=== PATIENT | female | born 1945 | race Caucasian/White ===

== ENCOUNTER 2017-02-27 15:13 | Emergency (ER) | payer MEDICARE ==
[2017-02-27 16:22] LABS: INR-International Normal Ratio 1.4; Prothrombin Time 17.6 SEC (12.0-14.7)
[2017-02-27 16:31] LABS: #Basophils 0.1 thou/uL (0.0-0.2); #Eosinphils 0.3 thou/uL (0.0-0.7); #Lymphocytes 1.1 thou/uL (1.20-3.40); #Monocytes 0.4 thou/uL (0.11-0.59); #Neutrophils 1.7 thou/uL (1.40-6.50); %Basophils 2.7 % (0.0-1.0); %Eosinophils 7.9 % (0.0-10.0); %Lymphocytes 32.1 % (21.0-51.0); %Monocytes 10.5 % (0.0-10.0); %Neutrophils 46.8 % (42.0-75.0); ALT (SGPT) 22 U/L (8-55); AST (SGOT) 41 U/L (5-34); Albumin 3.1 g/dL (3.4-4.8); Alkaline Phosphatase 96 U/L (40-150); Anion Gap 13 mmol/L (10-20); BUN (Urea Nitrogen) 8 mg/dL (9.8-20.1); Bilirubin, Total 2.2 mg/dL (0.2-1.2); Calc. Creatinine Clearance 0 mL/min (70-130); Calcium 9.1 mg/dL (7.8-10.44); Carbon Dioxide 23 mmol/L (23-31); Chloride 111 mmol/L (98-107); Estimated GFR-MDRD 77; Globulin 3.7 g/dL (2.4-3.5); Glucose 158 mg/dL (83-110); Hemoglobin 12.9 g/dL (12.0-16.0); Lipase 62 U/L (8-78); MDiff Complete? YES; Macrocytosis SLIGHT = 6-15 cells (100X) (0-5/hpf); Magnesium 1.8 mg/dL (1.6-2.6); Mean Corpuscular HGB CONC 34.3 g/dL (32.0-36.0); Mean Corpuscular Hemoglobin 36.3 pg (27.0-31.0); Mean Platelet Volume 7.3 fL (7.4-10.4); Platelet Count 68 thou/uL (130-400); Potassium 3.6 mmol/L (3.5-5.1); Protein, Total 6.8 g/dL (6.0-8.3); RBC Distribution Width 13.4 % (11.5-14.5); Red Blood Cell (RBC) Count 3.55 mill/uL (4.20-5.40); Sodium 143 mmol/L (136-145); White Blood Cell (WBC) Count 3.5 thou/uL (4.8-10.8)
[2017-02-27 16:33] LABS: CKMB 0.9 ng/mL (0-6.6); Troponin I Less than 0.010 ng/mL (< 0.028)
[2017-02-27 16:36] LABS: Bilirubin Negative (Negative); Blood, Urine Trace (Negative); Clarity Clear (Clear); Glucose, Urine (Dipstick) Negative (Negative); Leukocyte Negative (Negative); Nitrite Negative (Negative); Protein, Urine (Dipstick) Trace mg/dL (Neg-Trace); pH, Urine 5.5 (5.0-9.0)
[2017-02-27 16:41] LABS: Specific Gravity, Urine 1.028 (1.002-1.036)
[2017-02-27 16:44] LABS: Bacteria/HPF Rare-Few HPF (None Seen); Crystals/HPF None Seen HPF (Negative); Hyaline Casts/LPF NONE SEEN LPF (0-3 Hyaline); Other Casts/LPF None Seen LPF (0-3 Hyaline); Oval Fat Bodies/HPF None Seen HPF (None Seen); Renal Epithelial None Seen HPF (0-3); Sperm/HPF None Seen HPF (None Seen); Transitional Epithelial NONE SEEN HPF (0-3); Trichomonas/HPF None Seen HPF (None Seen); WBC/HPF 0-3 HPF (0-3); Yeast-All Forms None Seen HPF (None Seen)
== END 2017-02-27 17:12 | disposition home or self-care (01) ==
LOC: BURERS 15:13
DX: E72.20 Disorder of urea cycle metabolism, unspecified (principal); K74.60 Unspecified cirrhosis of liver; D64.9 Anemia, unspecified; K21.9 Gastro-esophageal reflux disease without esophagitis; J43.9 Emphysema, unspecified; Z79.891 Long term (current) use of opiate analgesic; Z79.899 Other long term (current) drug therapy
CPT/HCPCS: 80053; 81003; 81015; 82140; 82553; 83690; 83735; 84443; 84484; 85025; 85610; 85730; 96360

== ENCOUNTER 2018-10-28 09:58 | Outpatient (CLI) | payer MEDICARE ==
--- NOTE | 2018-10-28 18:42 | ULT ---
BILATERAL RENAL ULTRASOUND 10/28/18 Ultrasonography of the urinary tract was performed in this patient with chronic kidney disease. The right kidney is slightly small measuring 8.8 x 4.0 x 3.7 cm. Its cortex is slightly thinned and m inimally echogenic. There is no obstruction or mass. The left kidney is more normal in appearance liza suring 10.3 x 4.2 x 4.2 cm. The urinary bladder wall is 3 mm thick which is probably normal given the degree of distention. IMPRESSION: Right kidney slightly smaller and echogenic. Otherwise, no evidence of obstruction or other acute fin dings. POS: HOME
== END 2018-10-28 09:59 | disposition home or self-care (01) ==
LOC: BURULT 09:58
PROVIDERS: ATTEND Internal Medicine Nephrology
DX: I12.9 Hypertensive chronic kidney disease with stage 1 through stage 4 chronic kidney disease, or unspecified chronic kidney disease (principal); N18.9 Chronic kidney disease, unspecified; N27.0 Small kidney, unilateral
CPT/HCPCS: 76770

== ENCOUNTER 2019-05-23 16:39 | Emergency (ER) | payer MEDICARE ==
[2019-05-23] MEDS ORDERED: traMADol HCl 50 MG TAB ONE (17:05)
--- NOTE | 2019-05-23 17:34 | RAD ---
RADIOGRAPH CHEST AND LEFT RIBS 4 VIEWS: HISTORY: 73-year-old female with acute traumatic left rib pain due to fall. FINDINGS: Several nonacute left rib fractures, including posterior aspects of left seventh and eighth ribs. No grossly displaced acute rib fracture identified. Visualized lung martins are grossly clear. Left-sided PICC. No cardiomegaly. No pneumothorax. IMPRESSION: 1. Old left rib fracture. 2. No definite acute left rib fracture identified.
== END 2019-05-23 17:44 | disposition home or self-care (01) ==
LOC: BURERS 16:39
DX: S20.212A Contusion of left front wall of thorax, initial encounter (principal); D64.9 Anemia, unspecified; J43.9 Emphysema, unspecified; K21.9 Gastro-esophageal reflux disease without esophagitis; Z79.899 Other long term (current) drug therapy; Z79.891 Long term (current) use of opiate analgesic; Z79.82 Long term (current) use of aspirin; K74.60 Unspecified cirrhosis of liver; W06.XXXA Fall from bed, initial encounter

== ENCOUNTER 2020-04-27 10:28 | Outpatient (CLI) | payer MEDICARE ==
[2020-04-27 11:11] LABS: Prothrombin Time 13.2 sec (12.0-14.7)
[2020-04-27 11:20] LABS: #Basophils 0.1 thou/uL (0.0-0.2); #Eosinphils 0.3 thou/uL (0.0-0.7); #Lymphocytes 0.9 thou/uL (1.20-3.40); #Monocytes 0.4 thou/uL (0.11-0.59); #Neutrophils 3.7 thou/uL (1.40-6.50); %Basophils 1.5 % (0.0-1.0); %Eosinophils 4.8 % (0.0-10.0); %Monocytes 8.2 % (0.0-10.0); %Neutrophils 68.5 % (42.0-75.0); Hemoglobin 12.4 g/dL (12.0-16.0); Mean Corpuscular HGB CONC 32.5 g/dL (32.0-36.0); Mean Corpuscular Hemoglobin 31.1 pg (27.0-31.0); Mean Corpuscular Volume 95.8 fL (78.0-98.0); Mean Platelet Volume 8.3 fL (7.4-10.4); Platelet Count 224 thou/uL (130-400); RBC Distribution Width 11.7 % (11.5-14.5); Red Blood Cell (RBC) Count 3.99 mill/uL (4.20-5.40); White Blood Cell (WBC) Count 5.4 thou/uL (4.8-10.8)
[2020-04-27 11:25] LABS: ALT (SGPT) 10 U/L (8-55); AST (SGOT) 10 U/L (5-34); Albumin 4.4 g/dL (3.4-4.8); Alkaline Phosphatase 92 U/L (40-110); Anion Gap 15 mmol/L (10-20); BUN (Urea Nitrogen) 22 mg/dL (9.8-20.1); Bilirubin, Total 0.4 mg/dL (0.2-1.2); Calc. Creatinine Clearance 0 mL/min (70-130); Carbon Dioxide 26 mmol/L (23-31); Chloride 106 mmol/L (98-107); Globulin 2.4 g/dL (2.4-3.5); Glucose 99 mg/dL (83-110); Magnesium 2.1 mg/dL (1.6-2.6); Potassium 3.7 mmol/L (3.5-5.1); Protein, Total 6.8 g/dL (6.0-8.3); Sodium 143 mmol/L (136-145)
[2020-04-28 14:51] LABS: Reference Lab Name LABCORP
[2020-04-28 14:52] LABS: Ref Lab Test Ordered AFP L3; Ref Lab Test Ordered DGC PROTHROMBIN; Reference Lab Name LABCORP
== END 2020-04-27 10:29 | disposition home or self-care (01) ==
LOC: BURLAB 10:28
PROVIDERS: ATTEND Transplant Surgery
DX: Z48.23 Encounter for aftercare following liver transplant (principal); C22.1 Intrahepatic bile duct carcinoma; R97.8 Other abnormal tumor markers
CPT/HCPCS: 36415; 80053; 80158; 82105; 82378; 83735; 85025; 85610; 86301

== ENCOUNTER 2020-06-22 09:59 | Outpatient (CLI) | payer MEDICARE ==
[2020-06-22 10:32] LABS: #Basophils 0.1 thou/uL (0.0-0.2); #Eosinphils 0.3 thou/uL (0.0-0.7); #Lymphocytes 1.1 thou/uL (1.20-3.40); #Monocytes 0.5 thou/uL (0.11-0.59); #Neutrophils 3.8 thou/uL (1.40-6.50); %Basophils 1.3 % (0.0-1.0); %Eosinophils 4.6 % (0.0-10.0); %Lymphocytes 19.3 % (21.0-51.0); %Monocytes 8.3 % (0.0-10.0); %Neutrophils 66.4 % (42.0-75.0); Hemoglobin 12.5 g/dL (12.0-16.0); Mean Corpuscular HGB CONC 30.6 g/dL (32.0-36.0); Mean Corpuscular Hemoglobin 29.4 pg (27.0-31.0); Mean Corpuscular Volume 96.2 fL (78.0-98.0); Mean Platelet Volume 8.3 fL (7.4-10.4); Platelet Count 212 thou/uL (130-400); RBC Distribution Width 12.3 % (11.5-14.5); Red Blood Cell (RBC) Count 4.25 mill/uL (4.20-5.40); White Blood Cell (WBC) Count 5.7 thou/uL (4.8-10.8)
[2020-06-22 10:35] LABS: INR-International Normal Ratio 0.9; Prothrombin Time 12.3 sec (12.0-14.7)
[2020-06-22 11:03] LABS: ALT (SGPT) 9 U/L (8-55); AST (SGOT) 10 U/L (5-34); Albumin 4.2 g/dL (3.4-4.8); Alkaline Phosphatase 93 U/L (40-110); Anion Gap 13 mmol/L (10-20); BUN (Urea Nitrogen) 26 mg/dL (9.8-20.1); Bilirubin, Total 0.5 mg/dL (0.2-1.2); Calc. Creatinine Clearance 0 mL/min (70-130); Calcium 9.1 mg/dL (7.8-10.44); Carbon Dioxide 27 mmol/L (23-31); Chloride 106 mmol/L (98-107); Glucose 104 mg/dL (83-110); Magnesium 2.1 mg/dL (1.6-2.6); Protein, Total 6.2 g/dL (5.8-8.1); Sodium 142 mmol/L (136-145)
[2020-06-23 14:05] LABS: Ref Lab Test Ordered AFP L3; Reference Lab Name LABCORP
[2020-06-23 14:06] LABS: Reference Lab Name LABCORP
== END 2020-06-22 10:00 | disposition home or self-care (01) ==
LOC: BURLAB 09:59
PROVIDERS: ATTEND Transplant Surgery
DX: Z48.23 Encounter for aftercare following liver transplant (principal); C22.1 Intrahepatic bile duct carcinoma; R97.8 Other abnormal tumor markers
CPT/HCPCS: 36415; 80053; 80158; 82105; 82378; 83735; 85025; 85610; 86301

== ENCOUNTER 2020-09-06 09:44 | Outpatient (CLI) | payer MEDICARE ==
[2020-09-06 10:40] LABS: INR-International Normal Ratio 0.9; Prothrombin Time 12.4 sec (12.0-14.7)
[2020-09-06 10:53] LABS: #Basophils 0.1 thou/uL (0.0-0.2); #Eosinphils 0.2 thou/uL (0.0-0.7); #Lymphocytes 1.1 thou/uL (1.20-3.40); #Monocytes 0.6 thou/uL (0.11-0.59); %Eosinophils 3.5 % (0.0-10.0); %Lymphocytes 15.5 % (21.0-51.0); %Monocytes 7.8 % (0.0-10.0); %Neutrophils 71.2 % (42.0-75.0); Hemoglobin 13.5 g/dL (12.0-16.0); Mean Corpuscular HGB CONC 30.8 g/dL (32.0-36.0); Mean Corpuscular Hemoglobin 29.9 pg (27.0-31.0); Mean Corpuscular Volume 96.9 fL (78.0-98.0); Mean Platelet Volume 8.3 fL (7.4-10.4); Platelet Count 236 thou/uL (130-400); RBC Distribution Width 12.6 % (11.5-14.5)
[2020-09-06 11:01] LABS: ALT (SGPT) 8 U/L (8-55); AST (SGOT) 9 U/L (5-34); Albumin 4.5 g/dL (3.4-4.8); Alkaline Phosphatase 98 U/L (40-110); Anion Gap 14 mmol/L (10-20); BUN (Urea Nitrogen) 24 mg/dL (9.8-20.1); Bilirubin, Total 0.4 mg/dL (0.2-1.2); Calc. Creatinine Clearance 0 mL/min (70-130); Calcium 9.1 mg/dL (7.8-10.44); Carbon Dioxide 25 mmol/L (23-31); Chloride 108 mmol/L (98-107); Globulin 2.6 g/dL (2.4-3.5); Glucose 105 mg/dL (83-110); Magnesium 1.9 mg/dL (1.6-2.6); Potassium 3.8 mmol/L (3.5-5.1); Protein, Total 7.1 g/dL (5.8-8.1); Sodium 143 mmol/L (136-145)
[2020-09-07 07:28] LABS: Ref Lab Test Ordered AFP L3%; Reference Lab Name LABCORP
[2020-09-07 07:29] LABS: Ref Lab Test Ordered DCP; Reference Lab Name LABCORP
== END 2020-09-06 09:45 | disposition home or self-care (01) ==
LOC: BURLAB 09:44
PROVIDERS: ATTEND Transplant Surgery
DX: Z48.23 Encounter for aftercare following liver transplant (principal); C22.1 Intrahepatic bile duct carcinoma; R97.8 Other abnormal tumor markers
CPT/HCPCS: 36415; 80053; 80158; 82105; 82378; 83735; 85025; 85610; 86301

== ENCOUNTER 2020-12-13 09:44 | Outpatient (CLI) | payer MEDICARE ==
[2020-12-13 10:20] LABS: ALT (SGPT) 10 U/L (8-55); AST (SGOT) 11 U/L (5-34); Albumin 4.3 g/dL (3.4-4.8); Alkaline Phosphatase 98 U/L (40-110); Anion Gap 15 mmol/L (10-20); BUN (Urea Nitrogen) 24 mg/dL (9.8-20.1); Bilirubin, Total 0.5 mg/dL (0.2-1.2); Calc. Creatinine Clearance 0 mL/min (70-130); Calcium 9.9 mg/dL (7.8-10.44); Carbon Dioxide 23 mmol/L (23-31); Chloride 106 mmol/L (98-107); Globulin 3.2 g/dL (2.4-3.5); Glucose 107 mg/dL (83-110); Potassium 4.3 mmol/L (3.5-5.1); Protein, Total 7.5 g/dL (5.8-8.1); Sodium 140 mmol/L (136-145)
== END 2020-12-13 09:45 | disposition home or self-care (01) ==
LOC: BURLAB 09:44
PROVIDERS: ATTEND Transplant Surgery
DX: Z48.23 Encounter for aftercare following liver transplant (principal)
CPT/HCPCS: 36415; 80053; 80158

== ENCOUNTER 2021-06-21 10:27 | Outpatient (CLI) | payer MEDICARE ==
[2021-06-21 11:26] LABS: Prothrombin Time 12.9 sec (12.0-14.7)
[2021-06-21 11:27] LABS: PTT 32.5 sec (22.9-36.1)
[2021-06-21 12:16] LABS: ALT (SGPT) 8 U/L (8-55); AST (SGOT) 11 U/L (5-34); Albumin 4.9 g/dL (3.4-4.8); Alkaline Phosphatase 72 U/L (40-110); Anion Gap 16 mmol/L (10-20); BUN (Urea Nitrogen) 24 mg/dL (9.8-20.1); Calc. Creatinine Clearance 0 mL/min (70-130); Calcium 9.7 mg/dL (7.8-10.44); Carbon Dioxide 25 mmol/L (23-31); Cardiac Risk 7.1 (Less than 4.5); Chloride 100 mmol/L (98-107); Cholesterol 307 mg/dl (< 200 Desired); Globulin 2.7 g/dL (2.4-3.5); Glucose 107 mg/dL (83-110); HDL Cholesterol 43 mg/dL (>60 Neg Risk); LDL Cholesterol, Calculated 218 mg/dL; Magnesium 1.9 mg/dL (1.6-2.6); Protein, Total 7.6 g/dL (5.8-8.1); Sodium 137 mmol/L (136-145); Triglycerides 228 mg/dL (Less than 150)
[2021-06-21 12:19] LABS: Thyroid Stimulating Hormone 1.3184 uIU/mL (0.35-4.94)
[2021-06-21 12:42] LABS: #Basophils 0.1 thou/uL (0.0-0.2); #Eosinphils 0.2 thou/uL (0.0-0.7); #Monocytes 0.4 thou/uL (0.11-0.59); #Neutrophils 4.3 thou/uL (1.40-6.50); %Lymphocytes 16.2 % (21.0-51.0); %Monocytes 6.8 % (0.0-10.0); Hemoglobin 13.4 g/dL (12.0-16.0); Mean Corpuscular HGB CONC 31.5 g/dL (32.0-36.0); Mean Corpuscular Hemoglobin 30.2 pg (27.0-31.0); Mean Corpuscular Volume 95.8 fL (78.0-98.0); Mean Platelet Volume 8.2 fL (7.4-10.4); Platelet Count 262 thou/uL (130-400); RBC Distribution Width 12.6 % (11.5-14.5); Red Blood Cell (RBC) Count 4.44 mill/uL (4.20-5.40); White Blood Cell (WBC) Count 6.1 thou/uL (4.8-10.8)
[2021-06-21 17:17] LABS: Gamma GT (GGT) 25 U/L (9-36)
[2021-06-21 17:27] LABS: CEA, Serum 6.23 ng/mL (< or = 5.0)
[2021-06-21 17:29] LABS: Vitamin D, 25 Hydroxy 44.5 ng/ml (> 30.0)
[2021-06-21 17:32] LABS: Creatinine, Urine 317.08 mg/dL (47-110)
== END 2021-06-21 10:28 | disposition home or self-care (01) ==
LOC: BURLAB 10:27
PROVIDERS: ATTEND Internal Medicine Hepatology
DX: Z48.23 Encounter for aftercare following liver transplant (principal); R97.8 Other abnormal tumor markers; Z79.899 Other long term (current) drug therapy
CPT/HCPCS: 36415; 80053; 80061; 80158; 80197; 82105; 82306; 82378; 82570; 82652; 82977; 83036; 83735; 84156; 84443; 85025; 85610; 85730; 87497